=== PATIENT | male | born 1990 | race Caucasian/White ===

== ENCOUNTER → 2017-08-23 | Outpatient (REF) | payer OTHER | LOC: M SFHCLERA 17:20 | DX: J02.9 Acute pharyngitis, unspecified (principal) ==

== ENCOUNTER → 2019-06-29 | Outpatient (REF) | payer OTHER ==
[2019-06-29 12:13] LABS: HEMOGLOBIN A1c 5.8 %
== END ==
LOC: M SFHCPLAZ 09:50
PROVIDERS: ATTEND Family Medicine
DX: Z11.3 Encounter for screening for infections with a predominantly sexual mode of transmission (principal); Z13.1 Encounter for screening for diabetes mellitus

== ENCOUNTER → 2019-09-10 | Outpatient (REF) | payer OTHER ==
[2019-09-10 20:08] LABS: HEMOGLOBIN A1c 5.4 %
[2019-09-10 20:44] LABS: CREATININE, URINE 34.8 MG/DL; MALB URINE SIEMENS 13.2 MG/L; MAU/CREAT RATIO 37.9 MCG/MG (0.0-30.0)
[2019-09-12 13:07] LABS: C-PEPTIDE 2.3 ng/mL (1.1-4.4); INSULIN LEVEL 10.1 uIU/mL (2.6-24.9)
== END ==
LOC: M SFHCPLAZ 11:48
PROVIDERS: ATTEND Student in an Organized Health Care Education/Training Program
DX: R73.03 Prediabetes (principal)

== ENCOUNTER → 2019-09-28 | Outpatient (REF) | payer OTHER ==
[2019-09-28 14:10] LABS: ALBUMIN 4.8 GM/DL (3.2-5.2); BLOOD UREA NITROGEN 17 MG/DL (7-18); CALCIUM LEVEL 10.5 MG/DL (8.5-10.1); CARBON DIOXIDE LEVEL 30 MEQ/L (21-32); CHLORIDE LEVEL 100 MEQ/L (98-107); CREATININE FOR GFR 1.05 MG/DL (0.70-1.30); GLOMERULAR FILTRATION RATE > 60.0 (>60); GLUCOSE, FASTING 104 MG/DL (70-100); POTASSIUM SERUM 4.4 MEQ/L (3.5-5.1); SODIUM LEVEL 137 MEQ/L (136-145)
[2019-09-28 14:44] LABS: MAU/CREAT RATIO 117.8 MCG/MG (0.0-30.0)
== END ==
LOC: M SFHCPLAZ 10:03
PROVIDERS: ATTEND Family Medicine
DX: R80.9 Proteinuria, unspecified (principal)